=== PATIENT | male | born 2000 | race African-American/Black ===

== ENCOUNTER 2023-12-14 09:37 | Outpatient (CLI) | payer OTHER, SELFPAY ==
--- NOTE | ~2023-12-14 | US_ITS ---
EXAMINATION: US soft tissue LE LT DATE: 12/14/2023 09:59 INDICATION: Epidermoid cyst of skin of left lower extremity. Left foot mass. TECHNIQUE: Multiple grayscale and Doppler ultrasound images of the left lower extremity were obtained . COMPARISON: None FINDINGS: There is no abnormal mass in the patient's area of concern in left foot. IMPRESSION: 1. No abnormal mass in the patient's area of concern in left foot. Reviewed, dictated and finalized at location A.
== END 2023-12-14 09:38 | disposition home or self-care (01) ==
PROVIDERS: Visit Provider Physician Assistant
DX: L72.0 Epidermal cyst (principal)
CPT/HCPCS: 76882